=== PATIENT | male | born 1985 | race African-American/Black ===

== ENCOUNTER 2016-04-03 07:35 | Emergency (ER) | payer OTHER ==
[~2016-04-03] VITALS: Ht 180.3 cm; Wt 74.6 kg
[~2016-04-03 07:35] MED LIST: MOTRIN800 MG PO; ULTRAM50 MG PO; VICODIN,LORT1 TABLET PO; ZOFRAN4 MG PO; [UNRECOGNIZED DRUG - REMARK]
[2016-04-03] MEDS ORDERED: FLEXERIL10 MG PO (09:18)
[2016-04-03] MEDS ORDERED: MEDROL DOSEPAK4 MG PO (09:18)
[2016-04-03 09:36] VITALS: BP 120/78
== END 2016-04-03 09:44 | disposition home or self-care (01) ==
LOC: EME 07:35
DX: M54.32 Sciatica, left side (principal); F17.200 Nicotine dependence, unspecified, uncomplicated; Z91.013 Allergy to seafood
CPT/HCPCS: 72100; 99281; 99284; J1885

== ENCOUNTER 2016-04-24 09:30 | Emergency (ER) | payer OTHER ==
[~2016-04-24] VITALS: Ht 180.3 cm; Wt 74.2 kg
[~2016-04-24 09:30] MED LIST changes: +FLEXERIL10 MG PO; +MEDROL DOSEPAK4 MG PO
[2016-04-24] MEDS ORDERED: LIDODERM 5% P1 PATCH TD (10:27)
[2016-04-24] MEDS ORDERED: TRAMADOL HCL50 MG PO (10:27)
[2016-04-24] MEDS ORDERED: BACLOFEN10 MG PO (10:27)
[2016-04-24 10:45] VITALS: BP 145/89
== END 2016-04-24 10:45 | disposition home or self-care (01) ==
LOC: EME 09:30 → EXP 09:30
DX: M54.42 Lumbago with sciatica, left side (principal); S39.92XA Unspecified injury of lower back, initial encounter; X50.3XXA Overexertion from repetitive movements, initial encounter; Y99.0 Civilian activity done for income or pay; Z72.0 Tobacco use
CPT/HCPCS: 99281; 99283; J1100

== ENCOUNTER 2016-08-04 13:57 | Emergency (ER) | payer SELFPAY ==
[~2016-08-04] VITALS: Ht 180.3 cm; Wt 72.4 kg
[~2016-08-04 13:57] MED LIST changes: +BACLOFEN10 MG PO; +LIDODERM 5% P1 PATCH TD; +TRAMADOL HCL50 MG PO
[2016-08-04] MEDS ORDERED: MOTRIN600 MG PO (16:07)
[2016-08-04] MEDS ORDERED: FLEXERIL10 MG PO (16:07)
[2016-08-04] MEDS ORDERED: PREDNISONE20 MG PO (16:08)
[2016-08-04 16:25] VITALS: BP 124/91
== END 2016-08-04 16:28 | disposition home or self-care (01) ==
LOC: EME 13:57
DX: M54.5 Low back pain (principal); F17.200 Nicotine dependence, unspecified, uncomplicated; Z91.013 Allergy to seafood
CPT/HCPCS: 99281; 99284; J1885; J7512

== ENCOUNTER 2016-11-17 13:56 | Day surgery (SDC) | payer OTHER ==
[~2016-11-17] VITALS: Ht 177.8 cm; Wt 74.8 kg
[~2016-11-17 13:56] MED LIST changes: +MOTRIN600 MG PO; +PREDNISONE20 MG PO
[2016-11-17] MEDS ORDERED: BACLOFEN10 MG PO (14:42)
[2016-11-17] MEDS ORDERED: TRAMADOL HCL50 MG PO (14:43)
== END 2016-11-17 16:30 | disposition home or self-care (01) ==
LOC: PAIN 13:56 → SDC 14:30 → PAIN 16:30
DX: M51.16 Intervertebral disc disorders with radiculopathy, lumbar region (principal); G89.29 Other chronic pain; M48.06 Spinal stenosis, lumbar region; M79.606 Pain in leg, unspecified; F17.210 Nicotine dependence, cigarettes, uncomplicated
CPT/HCPCS: J1100; J2250; J3010